=== PATIENT | female | born 1955 | race Two or more races ===

== ENCOUNTER → 2018-09-20 | Outpatient (CLI) | payer OTHER, MEDICAID | LOC: CIMAGING 12:50 | PROVIDERS: ATTEND Family Medicine | DX: Z13.6 Encounter for screening for cardiovascular disorders (principal) | CPT/HCPCS: 93880-PO ==

== ENCOUNTER → 2018-10-01 | Outpatient (CLI) | payer OTHER, MEDICAID | LOC: CIMAGING 12:50 | PROVIDERS: ATTEND Family Medicine | DX: E04.2 Nontoxic multinodular goiter (principal); E05.90 Thyrotoxicosis, unspecified without thyrotoxic crisis or storm | CPT/HCPCS: 76536-PO ==